=== PATIENT | male | born 1945 | race Caucasian/White ===

== ENCOUNTER → 2017-02-16 | Outpatient (CLI) | payer OTHER, MEDICARE ==
[~2017-02-16] MED LIST: ASPIRIN EC325 MG PO; ESKALITH-CR450 MG PO; FISH OIL1000 MG PO; INDERAL20 MG PO; IRON TABLETS325 MG PO; KEFLEX 500MG.500 MG PO; OXYBUTYNIN5 MG PO; PANTOPRAZOLE SO40 MG PO; PRAVASTATIN 20M20 MG PO; SEROQUEL200 MG PO; TRAZODONE100 MG PO; TRICOR145 MG PO
[2017-02-16 10:54] LABS: BUN 13 mg/dL (7-18)
[2017-02-16 10:58] LABS: GFR (ESTIMATED) 60 ML/MIN (>60)
== END ==
LOC: LAB 09:32
PROVIDERS: Neurological Surgery
DX: E23.6 Other disorders of pituitary gland (principal)